=== PATIENT | male | born 1970 | race Caucasian/White ===

== ENCOUNTER 2018-02-19 23:05 | Emergency (ER) | payer BC ==
[~2018-02-19] VITALS: Ht 167.6 cm; Wt 73.9 kg
[~2018-02-19 23:05] MED LIST: ACET-1256 PO; CLR10 PO; IBUP-1050 PO
[2018-02-19 23:22] VITALS: TEMP 36.8; Ht 167.6 cm; Wt 73.9 kg
[2018-02-20] MEDS ORDERED: PRED20TA PO (00:14)
[2018-02-20] MEDS ORDERED: OXYCODONE IR HOME PACK PO ONE (00:15)
[2018-02-20 00:39] VITALS: BP 118/85; PULSE 60; O2SAT 97
--- NOTE | 2018-02-20 01:04 | EMERGENCY ROOM VISIT NOTE ---
History Report prepared by Navya: Willi Lozano Under the Supervision of: Dr. Micah Simms M.D. First contact with patient: 23:35 Chief Complaint: TOE PAIN, INJURY Stated Complaint: SWOLLEN R BIG TOE History of Present Illness The patient is a 47 year old male who presents to the Emergency Room with complaints of a swollen right big toe and sharp toe pain that began yesterday morning. He describes the pain as an 8/10 and the pain is worsened with movement. He mentions that he did not endure any trauma or injury and that he just woke up with the symptoms. He has been taking ibuprofen for the pain but it is not working. He denies using any new shoes but he does have a medical history of hypertension and a family history of gout. Source of History: patient Onset: Yesterday Position: toe(s) (Right big toe) Symptom Intensity: 8/10 Quality: sharp Modifying Factors (Worsening): movement Review of Systems See HPI for pertinent positives & negatives. A total of 6 systems reviewed and were otherwise negative. Past Medical & Surgical Medical Problems: (1) Hypertension Family History Gout Social History Smoking Status: Never Smoker Marital Status: Housing Status: lives with significant other Current/Historical Medications Scheduled Prednisone (Prednisone), 0 PO DAILY Allergies Coded Allergies: No Known Drug Allergy (Verified Allergy, Unknown, none, 02/20/18) Physical Exam Vital Signs Date Time Temp Pulse Resp B/P (MAP) Pulse Ox O2 Delivery O2 Flow Rate FiO2 02/20/18 00:39 60 18 118/85 97 02/19/18 23:22 36.8 62 16 143/105 96 Room Air Physical Exam GENERAL: Sitting up on stretcher, no distress NEURO: Awake and alert, oriented x3, no focal motor deficits EXTREMITIES: Right first MTP joint is warm to the touch, no erythema, pain to move the joint noted, there is minor swelling. No gross deformity. NVI distally. Medical Decision & Procedures ER Provider Diagnostic Interpretation: Toe X-Ray of digit 1 There is no bone dislocation, has lucency through sesamoid bone on the first toe at the MTP joint, could be chronic or possibly acute. I read this X-ray Medications Administered Medications (Trade) Dose Ordered Sig/Desire Route Start Time Stop Time Status Last Admin Dose Admin Prednisone (PredniSONE TAB) 60 mg NOW STAT PO 02/20/18 00:03 02/20/18 00:04 DC 02/20/18 00:29 60 MG Oxycodone HCl (Roxicodone Immediate Rel 5MG Home Pack) 1 homepack UD ONCE PO 02/20/18 00:15 02/20/18 00:16 DC 02/20/18 00:29 1 HOMEPACK ED Course 2335: The patient was evaluated in room B5. A complete history and physical exam was performed. 0009: I reevaluated the patient and went over the treatment plan. 0015: Reevaluated the patient. Discussed results and discharge instructions: He verbalized understanding and agreement. The patient is ready for discharge. Medical Decision Differential Diagnosis Toe fracture, contusion, dislocation, sprain, cellulitis, gout Patient presents with right first toe pain. The pain seems to be at the MTP joint. There is some warmth, no erythema. No gross deformity. There was no evidence for neurovascular compromise. The patient has not suffered trauma. Films of the toe show a lucency through one of the sesamoid bones, no dislocation of the joints. The lucency could be chronic or possibly acute although with no trauma, chronic seems more likely. The patient is going to be treated for gout. He was given prednisone, he will be on Advil, I gave him a postop shoe. He will try to keep the foot elevated. If things are worsening, he can return for reassessment. We will call him with any concerns noted on the formal radiology read. Medication Reconcilliation Current Medication List: was personally reviewed by me Blood Pressure Screening Patient's blood pressure: Normal blood pressure Impression Primary Impression: Gout Scribe Attestation The scribe's documentation has been prepared under my direction and personally reviewed by me in its entirety. I confirm that the note above accurately reflects all work, treatment, procedures, and medical decision making performed by me. Departure Information Dispostion Home / Self-Care Prescriptions Prednisone (Prednisone) 20 Mg Tab 0 PO DAILY, #18 TAB 3 DAILY FOR 3 DAYS, THEN 2 DAILY FOR 3 DAYS, THEN 1 DAILY FOR 3 DAYS. Prov: Micah Simms M.D. 02/20/18 Referrals Chikis Diaz MD (PCP) Forms HOME CARE DOCUMENTATION FORM, IMPORTANT VISIT INFORMATION, WORK / SCHOOL INSTRUCTIONS Patient Instructions My [facility]
--- NOTE | 2018-02-20 07:05 | DIAGNOSTIC IMAGING REPORT ---
RIGHT FIRST TOE 3 VIEWS HISTORY: Right first toe pain, poss fx COMPARISON: None. FINDINGS: There is no fracture or dislocation. Mild soft tissue swelling at the first MTP joint. Lucency through the medial sesamoid at the head of the first metatarsal appears corticated and therefore likely represents a bipartite sesamoid. No radiopaque foreign bodies. IMPRESSION: Mild soft tissue swelling at the first MTP joint. No acute fractures within the right first toe. Electronically signed by: Yves Almanza M.D. 02/20/2018 7:04 AM Dictated Date/Time: 02/20/2018 7:02 AM
== END 2018-02-20 00:32 | disposition home or self-care (01) ==
LOC: C.EDB 23:06
DX: M10.9 Gout, unspecified (principal); I10 Essential (primary) hypertension